=== PATIENT | female | born 1980 | race Caucasian/White ===

== ENCOUNTER 2024-10-21 06:47 | Emergency (ER) | payer OTHER, SELFPAY ==
[2024-10-21 06:49] VITALS: BP 154/89
--- NOTE | 2024-10-21 07:13 | ED.GENMED ---
History of Present Illness
General
Chief Complaint: Breathing Problem
Source: patient
Time Seen by Provider: 10/21/24 07:06
History of Present Illness
History of Present Illness:
44-year-old female with past medical history of GERD/H. pylori presenting to the emergency department for evaluation after she started to have coughing and shortness of breath when she cleaned her house on using a vinegar based solution
with water. Patient states that she has been feeling short of breath since and attempted to wait and see if symptoms would resolve but upon awakening this morning still felt a little short of breath so decided to come to the ER for further
evaluation patient states that 'I do not feel sick' and denies any other URI-like symptoms, chest pain, palpitations, diaphoresis, exertional dyspnea, lower extremity edema or any other concerns.
Past History
Past History
ED Past Medical History: GERD
ED Past Surgical History: Bowel resection and Orthopedic
Social History
Tobacco: Non-smoker
Alcohol: Occasional
Drug: None
Personal:
Living: with family
Employment: Employed
Family History
Family History: Other (Denies)
Review of Systems
Review of Systems
All Other Systems: ROS reviewed and negative except as documented in HPI and ROS
Phy Exam
Physical Exam
Physical Exam:
GENERAL: Alert , in no apparent distress
EYE: conjunctiva clear
NECK: Supple
ENT: o/p clr, mmm.
CARDIAC: Regular rate and rhythm
LUNGS: Clear breath sounds bilaterally, no acute respiratory distress, no wheezes/rales/rhonchi
NEUROLOGICAL: Alert and oriented
SKIN: Warm and dry, skin intact.
MUSCULOSKELETAL: well perfused.
PSYCH: Normal and appropriate interaction.
Scores
Heart Failure Risk
Heart Failure Risk Score: Not Applicable
Heart Score for Chest Pain Patients
STEMI patient?: Not applicable
Withdrawal Assessment of Alcohol
Withdrawal Assessment Completed?: Not applicable
Course
Orders/Labs/Results
Orders:
Orders
10/21/24 07:15
CR Chest - 2 Views Urgent
Comment:
Reason For Exam: SOB
10/21/24 07:46
Albuterol Nebs [Ventolin Nebules] 2.5 mg INH R NOW STA
Vital Signs
Initial and Last Documented VS:
Initial Vital Signs
Temp Pulse Resp BP Pulse Ox
98.5 F 105 16 154/89 99
10/21/24 06:49 10/21/24 06:49 10/21/24 06:49 10/21/24 06:49 10/21/24 06:49
Last Documented Vital Signs
Temp Pulse Resp BP Pulse Ox
98.5 F 105 16 110/72 98
10/21/24 06:49 10/21/24 06:49 10/21/24 06:49 10/21/24 08:00 10/21/24 08:00
MDM/Problems Addressed
Differential Diagnosis Includes:
Chemical pneumonitis, minimal concern for pneumonia or other infectious etiology such as COVID/flu
MDM/Problems Addressed:
44-year-old female presenting to the ER for evaluation after she came in contact with vinegar based solution while cleaning her house and since that time has been feeling a little short of breath. Exam here today is reassuring with the patient
being nontachypneic, nonhypoxic and no evidence for tachycardia (triage vital signs noted). Patient has been intermittently using her 's inhaler when she feels worsening shortness of breath. At this time there is no wheezing or signs of
bronchospasm. Will check a chest x-ray to rule out any other abnormalities. Anticipate discharge home and advised patient on avoidance of harsh cleaning products or using mask while cleaning.
*Radiology
Radiology exam reviewed: preliminary read by ED provider (Normal chest x-ray)
*Pulse Oximetry
Patient hypoxic: no
*Critical Care Note
Total Time (30-74mins, 75-104mins- exclusive of procedures): Not Applicable
Patient Management
Escalation/DeEscalation of care consider admission/obs:
CXR unremarable. Albuterol neb given. Patient ambulated and pulse ox remains between 95-96% RA. Stable for d/c home. Patient aware of return precautions
ED Attending Note
-
Portions of this chart may have been created with voice recognition software.� Occasional wrong word or��sound alike� substitutions may have occurred due to the inherent limitations of voice recognition software.
Discharge Plan
Departure
Patient Disposition: Home (Routine Discharge)
Date of Disposition: 10/21/24
Time of Disposition: 08:13
Patient with high blood pressure during this ER visit?: Yes
Discharge Problem:
Pneumonitis due to inhalation of other solids and liquids
Instructions: Pneumonitis (DC)
Prescriptions:
New
albuterol sulfate 90 mcg/actuation HFA aerosol inhaler
2 puff inhalation Q6H PRN (Reason: shortness of breath or wheezing) Qty: 6.7 0RF
No Action
sucralfate 1 GM/10 ML suspension
1 gm PO QID Qty: 5 0RF
Referrals:
UNKNOWN - PT DOES,NOT KNOW [Family Provider] -
Interventions
Interventions:
*Risk Screen - Suicide Last Done: 10/21/24 06:49
*General Assessment Last Done: 10/21/24 06:49
*Neglect/Abuse Screening Last Done: 10/21/24 06:49
ED- Fall Risk Assessment Last Done: 10/21/24 07:11
*ED COVID-19 Vaccine History Last Done: 10/21/24 07:10
*Nursing Disposition Last Done: 10/21/24 08:22
ED- Cardiac Assessment Last Done: 10/21/24 07:11
ED- Pulmonary Assessment Last Done: 10/21/24 07:11
Discharge Date and Time
Discharge Date/Time: 10/21/24 08:22
Print Language: MACEDONIAN
[2024-10-21 07:45] VITALS: BP 109/76
[2024-10-21] MEDS: VENTOLIN NEBULES 2.5 MG INH (07:57)
[2024-10-21 08:00] VITALS: BP 110/72
== END 2024-10-21 08:22 | disposition home or self-care (01) ==
LOC: EMR 06:47
PROVIDERS: EMERGENCY PHYSICIAN Emergency Medicine
DX: T65.891A Toxic effect of other specified substances, accidental (unintentional), initial encounter (principal); J69.8 Pneumonitis due to inhalation of other solids and liquids; R06.02 Shortness of breath; K21.9 Gastro-esophageal reflux disease without esophagitis
CPT/HCPCS: 94640; 99283; 71046